=== PATIENT | female | born 1955 | race African-American/Black ===

== ENCOUNTER 2017-05-26 21:29 | Inpatient (IN) | payer BC ==
[~2017-05-26] VITALS: Ht 154.9 cm; Wt 61.2 kg
[2017-05-26] MEDS ORDERED: IV NORMAL SALINE 1000ML BAG 1,000 ML IV SCH (21:45)
--- NOTE | 2017-05-26 21:49 | PHYS DOC ---
Adult General Chief Complaint Chief Complaint: ABDOMINAL PAIN HPI HPI Patient is a 62 year old female who presents with complaint of nausea and vomiting this started suddenly 1 hour ago. 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 Patient states that the symptoms started while she was working. Patient denies feeling sick or having any fevers today prior to onset of symptoms. Patient denies any abdominal pain at this time. Patient was given Zofran by EMS which she states helped with her nausea, however she is currently feeling chills. Denies any diarrhea or bloody stools. Patient denies any significant past medical history. Patient has had a hysterectomy several years ago but denies any recent surgeries. Patient not currently on any medications and does not follow the primary doctor currently. Review of Systems Review of Systems Constitutional: Chills, denies fever[] Eyes: Denies change in visual acuity, redness, or eye pain [] HENT: Denies nasal congestion or sore throat [] Respiratory: Denies cough or shortness of breath [] Cardiovascular: Denies chest pain or edema[] GI: Nausea, vomiting, denies abdominal pain, bloody stools or diarrhea [] : Denies dysuria or hematuria [] Musculoskeletal: Denies back pain or joint pain [] Integument: Denies rash or skin lesions [] Neurologic: Denies headache, focal weakness or sensory changes [] Current Medications Current Medications Current Medications Medications (Trade) Dose Ordered Sig/Sarwat Start Time Stop Time Status Last Admin Dose Admin Famotidine (Pepcid) 20 mg 1X ONCE 05/26/17 22:00 05/26/17 22:01 DC 05/26/17 22:08 20 MG Info (Do NOT chart on this entry -- for MONITORING) 1 each PRN DAILY PRN 05/26/17 23:15 05/28/17 23:14 Iohexol (Omnipaque 300 Mg/ml) 75 ml 1X ONCE 05/26/17 23:15 05/26/17 23:16 DC 05/26/17 00:20 75 ML Prochlorperazine Edisylate (Compazine) 10 mg 1X ONCE 05/26/17 22:00 05/26/17 22:01 DC 05/26/17 22:08 10 MG Sodium Chloride 1,000 ml @ 1,000 mls/hr Q1H 05/26/17 21:45 05/26/17 22:44 DC 05/26/17 22:07 1,000 MLS/HR Allergies Allergies Allergies Coded Allergies Type Severity Reaction Last Updated Verified Penicillins Allergy Unknown "SHAKING" 05/26/17 Yes Physical Exam Physical Exam Constitutional: Alert, afebrile, rigors, appears ill. [] HENT: Normocephalic, atraumatic, bilateral external ears normal, oropharynx moist, no oral exudates, nose normal. [] Eyes: PERRLA, EOMI, conjunctiva normal, no discharge. [] Neck: Normal range of motion, no tenderness, supple, no stridor. [] Cardiovascular:Heart rate regular rhythm, no murmur [] Lungs & Thorax: Bilateral breath sounds clear to auscultation [] Abdomen: Bowel sounds normal, soft, no tenderness, no masses, no pulsatile masses. [] Skin: Warm, dry, no erythema, no rash. [] Back: No tenderness, no CVA tenderness. [] Extremities: No tenderness, no cyanosis, no clubbing, ROM intact, no edema. [] Neurologic: Alert and oriented X 3, normal motor function, normal sensory function, no focal deficits noted. [] Current Patient Data Vital Signs Vital Signs Date Time Temp Pulse Resp B/P (MAP) Pulse Ox O2 Delivery O2 Flow Rate FiO2 05/27/17 00:04 72 11 106/65 (79) 97 Room Air 05/26/17 21:42 98.4 98.4 Lab Values Laboratory Tests Test 05/26/17 22:14 05/26/17 23:20 Urine Collection Type Unknown Urine Color Yellow Urine Clarity Clear Urine pH 6.0 Urine Specific [place] 1.010 Urine Protein Negative mg/dL (NEG-TRACE) Urine Glucose (UA) Negative mg/dL (NEG) Urine Ketones (Stick) Negative mg/dL (NEG) Urine Blood Negative (NEG) Urine Nitrite Negative (NEG) Urine Bilirubin Negative (NEG) Urine Urobilinogen Dipstick 0.2 mg/dL (0.2 mg/dL) Urine Leukocyte Esterase Negative (NEG) Urine RBC Occ /HPF (0-2) Urine WBC 0 /HPF (0-4) Urine Squamous Epithelial Cells None /LPF Urine Bacteria 0 /HPF (0-FEW) Urine Mucus Slight /LPF White Blood Count 10.8 x10^3/uL (4.0-11.0) Red Blood Count 4.46 x10^6/uL (3.50-5.40) Hemoglobin 13.0 g/dL (12.0-15.5) Hematocrit 39.0 % (36.0-47.0) Mean Corpuscular Volume 88 fL (79-100) Mean Corpuscular Hemoglobin 29 pg (25-35) Mean Corpuscular Hemoglobin Concent 33 g/dL (31-37) Red Cell Distribution Width 13.9 % (11.5-14.5) Platelet Count 148 x10^3/uL (140-400) Neutrophils (%) (Auto) 88 % (31-73) H Lymphocytes (%) (Auto) 5 % (24-48) L Monocytes (%) (Auto) 6 % (0-9) Eosinophils (%) (Auto) 0 % (0-3) Basophils (%) (Auto) 0 % (0-3) Neutrophils # (Auto) 9.6 x10^3uL (1.8-7.7) H Lymphocytes # (Auto) 0.6 x10^3/uL (1.0-4.8) L Monocytes # (Auto) 0.6 x10^3/uL (0.0-1.1) Eosinophils # (Auto) 0.0 x10^3/uL (0.0-0.7) Basophils # (Auto) 0.0 x10^3/uL (0.0-0.2) Platelet Estimate Pending Sodium Level 143 mmol/L (136-145) Potassium Level 3.3 mmol/L (3.5-5.1) L Chloride Level 107 mmol/L (98-107) Carbon Dioxide Level 24 mmol/L (21-32) Anion Gap 12 (6-14) Blood Urea Nitrogen 12 mg/dL (7-20) Creatinine 0.9 mg/dL (0.6-1.0) Estimated GFR (Cockcroft-Gault) 77.0 BUN/Creatinine Ratio 13 (6-20) Glucose Level 134 mg/dL (70-99) H Calcium Level 9.0 mg/dL (8.5-10.1) Total Bilirubin 0.5 mg/dL (0.2-1.0) Aspartate Amino Transferase (AST) 21 U/L (15-37) Alanine Aminotransferase (ALT) 19 U/L (14-59) Alkaline Phosphatase 43 U/L (46-116) L Total Protein 7.2 g/dL (6.4-8.2) Albumin 3.6 g/dL (3.4-5.0) Albumin/Globulin Ratio 1.0 (1.0-1.7) Lipase 96 U/L (73-393) Laboratory Tests 05/26/17 23:20 Laboratory Tests 05/26/17 23:20 EKG EKG Interpreted by me: Heart rate 68, sinus rhythm, normal intervals, left axis deviation, no acute ST/T-wave abnormalities present[] Radiology/Procedures Radiology/Procedures 3 view acute abdominal series interpreted by me: No pulmonary infiltrates or effusions, normal cardiac silhouette, dilated loops of small bowel suggesting obstructive bowel gas pattern [facility] [address] [place] [address] IMAGING REPORT Signed PATIENT: MASOOD HERNANDEZ ACCOUNT: [id number] : 1955 LOCATION: ER AGE: 62 SEX: F EXAM STATUS: REG ER ORD. PHYSICIAN: SUPRIYA MANNING MD REASON: nausea vomiting, abnormal abdominal x-ray, possible obstruction PROCEDURE: CT ABD PELV W/ IV CONTRST ONLY INDICATION: abd pain, nausea, vomiting; Omni 300, 75ml COMPARISON: None. TECHNIQUE: Axial CT images were obtained through the abdomen and pelvis with intravenous contrast. One or more of the following individualized dose reduction techniques were utilized for this examination: 1. Automated exposure control; 2. Adjustment of the mA and/or kV according to patient size; 3. Use of iterative reconstruction technique. FINDINGS: Mild calcific atherosclerosis without abdominal aortic aneurysm. Apparent postoperative changes at right common femoral region. Postcholecystectomy changes. Numerous low-attenuation lesions within the liver measuring up to about 12 mm. No peripancreatic edema. Calcified granulomas of spleen. Suspected fat-containing lesion right kidney, 7 mm. Cystic lesion left kidney, 26 mm. No hydronephrosis. Bladder is distended with urine at time of exam. Large amount of stool seen within the rectosigmoid region. Dilated loops of small bowel are seen within the abdomen measuring up to about 59 mm. Degenerative changes spine IMPRESSION: 1. Dilated loops of small bowel are seen throughout the abdomen with decompression of the colon. Can be seen with causes such as small bowel obstruction in the correct clinical context. 2. Large amount of stool is seen within the rectosigmoid region. Could be from constipation but causes such as fecal impaction not excluded. 3. Small fat-containing lesion right kidney. Can be seen with angiomyolipoma. 4. Multiple low-attenuation lesions of the liver. Many of these are too small to characterize on this examination. If the patient has history or risk factors for malignancy nonemergent follow-up liver MRI could BE obtained 5. Mild scattered sclerotic foci with one of the most prominent foci within the left pelvis measuring approximately 1 cm. Most common cause would be bone island unless the patient has a known history of malignancy 6. Within the mid to lower lumbar spine at the anterior aspect of the central canal there is apparent region of high attenuation measuring up to about 4 mm in thickness. Could be related to degenerative changes with some disc protrusions within the region but would correlate with symptoms in the area and a follow-up MRI could be helpful to further evaluate to ensure that there is not an alternative cause such as a small amount of blood within the region.. Electronically signed by: Mily Benjamin MD (05/27/2017 12:46 AM) [facility] DICTATED and SIGNED BY: MILY BENJAMIN MD DATE: 05/27/17 0029 CC: SUPRIYA MANNING MD; SUNITA BAKER MD ~ [] Course & Med Decision Making Course & Med Decision Making Pertinent Labs and Imaging studies reviewed. (See chart for details) The patient's abdominal x-rays showed a gas pattern concerning for small bowel obstruction. The patient's CT scan further suggest small bowel obstruction though no obvious transition point is present. This could suggest partial small bowel obstruction versus ileus. Causes for patient's obstruction are not definite though possible malignancy could be part of the differential given the abnormal appearance to the liver is noted in the CT report. The patient was given IV fluids and Compazine in the emergency department. Patient states her symptoms have improved, however patient continues to feel nauseous and is not tolerating by mouth intake at this time. The patient will be admitted for further treatment and evaluation. Patient admitted to Dr. Jensen. Carley Disclaimer Carley Disclaimer This electronic medical record was generated, in whole or in part, using a voice recognition dictation system. Departure Departure Impression: Primary Impression: Small bowel obstruction Additional Impression: Nausea and vomiting Disposition: ADMITTED INPATIENT Admitting Physician: Davi Jensen Condition: STABLE Problem Qualifiers Additional Impression: Nausea and vomiting Vomiting type: unspecified Vomiting Intractability: intractable Qualified Codes: R11.2 - Nausea with vomiting, unspecified SUPRIYA MANNING MD May 26, 2017 21:49
[2017-05-26] MEDS ORDERED: FAMOTIDINE 20 MG/2 ML VIAL IVP ONE (22:00)
[2017-05-26] MEDS ORDERED: PROCHLORPERAZINE 10 MG/2 ML VIAL. IV ONE (22:00)
[2017-05-26 22:26] LABS: BILIRUBIN,URINE NEGATIVE (NEG); GLUCOSE,URINE NEGATIVE (NEG); NITRITE,URINE NEGATIVE (NEG); PROTEIN,URINE NEGATIVE (NEG-TRACE); UROBILINOGEN,URINE 0.2 mg/dL (0.2 mg/dL)
[2017-05-26 23:05] LABS: BACTERIA,URINE 0 /HPF (0-FEW); RBC,URINE OCC /HPF (0-2); WBC,URINE 0 /HPF (0-4)
[2017-05-26] MEDS ORDERED: IOHEXOL 300 MG/ML 75 ML VIAL IV ONE (23:15)
[2017-05-26] MEDS ORDERED: CONTRAST GIVEN MC PRN (23:15)
[2017-05-26 23:33] LABS: BASO % 0 % (0-3); EOS % 0 % (0-3); LYMPH # 0.6 x10^3/uL (1.0-4.8); LYMPH % 5 % (24-48); MEAN CORPUSCULAR HEMOGLOBIN 29 pg (25-35); MEAN CORPUSCULAR HGB CONC 33 g/dL (31-37); MEAN CORPUSCULAR VOLUME 88 fL (79-100); MONO % 6 % (0-9); NEUT % 88 % (31-73); PLATELET COUNT 148 x10^3/uL (140-400); RED BLOOD COUNT 4.46 x10^6/uL (3.50-5.40); RED CELL DISTRIBUTION WIDTH 13.9 % (11.5-14.5); WHITE BLOOD COUNT 10.8 x10^3/uL (4.0-11.0)
[2017-05-26 23:41] LABS: CREATININE 0.9 mg/dL (0.6-1.0); POTASSIUM 3.3 mmol/L (3.5-5.1)
[2017-05-26 23:49] LABS: ALBUMIN 3.6 g/dL (3.4-5.0); TOTAL BILIRUBIN 0.5 mg/dL (0.2-1.0); TOTAL PROTEIN 7.2 g/dL (6.4-8.2)
--- NOTE | 2017-05-27 00:49 | RAD ---
INDICATION: abd pain, nausea, vomiting; Omni 300, 75ml COMPARISON: None. TECHNIQUE: Axial CT images were obtained through the abdomen and pelvis with intravenous contrast. One or more of the following individualized dose reduction techniques were utilized for this examination: 1. Automated exposure control; 2. Adjustment of the mA and/or kV according to patient size; 3. Use of iterative reconstruction technique. FINDINGS: Mild calcific atherosclerosis without abdominal aortic aneurysm. Apparent postoperative changes at right common femoral region. Postcholecystectomy changes. Numerous low-attenuation lesions within the liver measuring up to about 12 mm. No peripancreatic edema. Calcified granulomas of spleen. Suspected fat-containing lesion right kidney, 7 mm. Cystic lesion left kidney, 26 mm. No hydronephrosis. Bladder is distended with urine at time of exam. Large amount of stool seen within the rectosigmoid region. Dilated loops of small bowel are seen within the abdomen measuring up to about 59 mm. Degenerative changes spine IMPRESSION: 1. Dilated loops of small bowel are seen throughout the abdomen with decompression of the colon. Can be seen with causes such as small bowel obstruction in the correct clinical context. 2. Large amount of stool is seen within the rectosigmoid region. Could be from constipation but causes such as fecal impaction not excluded. 3. Small fat-containing lesion right kidney. Can be seen with angiomyolipoma. 4. Multiple low-attenuation lesions of the liver. Many of these are too small to characterize on this examination. If the patient has history or risk factors for malignancy nonemergent follow-up liver MRI could BE obtained 5. Mild scattered sclerotic foci with one of the most prominent foci within the left pelvis measuring approximately 1 cm. Most common cause would be bone island unless the patient has a known history of malignancy 6. Within the mid to lower lumbar spine at the anterior aspect of the central canal there is apparent region of high attenuation measuring up to about 4 mm in thickness. Could be related to degenerative changes with some disc protrusions within the region but would correlate with symptoms in the area and a follow-up MRI could be helpful to further evaluate to ensure that there is not an alternative cause such as a small amount of blood within the region.. Electronically signed by: Krzysztof Knight MD (05/27/2017 12:46 AM) [facility]
[2017-05-27] MEDS ORDERED: ONDANSETRON PF 4 MG/2 ML VIAL. IV PRN (01:15)
[2017-05-27] MEDS: IV DEXTROSE 5 %-0.45 % NACL 1,000 ML IV SCH ×3 (02:59→20:18)
[2017-05-27 03:22] LABS: % BASOS 2 % (0-3); PLT ESTIMATE ADEQUATE (ADEQUATE)
[2017-05-27] MEDS ORDERED: INFLUENZA VAX SCREEN BY RX. MC ONE (05:15)
[2017-05-27 07:30] VITALS: BP 125/71
[2017-05-27] MEDS ORDERED: FLU VACC QS2017-18 (36MOS+)/PF 0.5 ML SYRINGE. VAX IM ONE (09:00)
[2017-05-27 10:30] VITALS: BP 110/63
--- NOTE | 2017-05-27 10:55 | RAD ---
Acute abdomen series with chest, 3 views, 05/26/2017: History: Pain, nausea and vomiting There is moderate gaseous distention of multiple small bowel loops with associated air-fluid levels. There is a moderate amount of gas in the stomach. There is a small amount of gas in the colon. There are moderate scattered collections of stool in the colon. No free air seen in the abdomen. Surgical clips are present in the right upper quadrant and at the right groin. Mild scattered degenerative changes are evident in the spine. The heart size and pulmonary vascularity are normal. No pulmonary infiltrates are seen. There is no evidence of pleural fluid. IMPRESSION: Small bowel obstruction.
--- NOTE | 2017-05-27 12:26 | EKG ---
[facility] [address] [place] [address] Test Date: 2017-05-26 Test Time: 22:14:23 Pat Name: MASOOD HERNANDEZ Department: Room: [facility] Gender: F Swimming Pool Serviceperson: : 1955 Requested By: SUPRIYA MANNING Order Number: [id number] Reading MD: Darnell Gutierrez Measurements Intervals Mcmillan Rate: 68 P: 50 FL: 126 QRS: -45 QRSD: 108 T: 42 QT: 402 QTc: 428 Interpretive Statements SINUS RHYTHM ABNORMAL LEFT AXIS DEVIATION LEFT ANTERIOR FASCICULAR BLOCK LEFT VENTRICULAR HYPERTROPHY ABNORMAL ECG RI6.01 No previous ECG available for comparison Electronically Signed On 06-14-2017 17:14:51 CDT by Darnell Gutierrez
[2017-05-27 15:00] VITALS: BP 132/80
--- NOTE | 2017-05-27 17:59 | HP ---
ADMIT DATE: 05/27/2017 CHIEF COMPLAINT: Abdominal pain. HISTORY OF PRESENT ILLNESS: This is a 62-year-old -[place] woman without significant past medical history who presented from work with severe nausea, vomiting and dizziness. She relates that she actually was on her way home from work where she had been ill feeling. She had all of a sudden started vomiting. On her way home, she actually got worse and worse and did not even make it all the way to her house. Her neighbor called EMS for her, and she was taken to the Emergency Room. She relates that she had not been eating any unusual foods, has no sick contact. Denies any fevers, chills, any other symptoms. Symptoms, however, got better when she received Zofran in EMS. At current examination, she is feeling fairly stable and is no longer nauseous. PAST MEDICAL HISTORY: Hypertension. FAMILY HISTORY: Positive for diabetes and hypertension. SOCIAL HISTORY: Lives by herself, never smoked. No toxic habits. ALLERGIES: PENICILLINS. MEDICATIONS: MAR reconciled with home medications. REVIEW OF SYSTEMS: Positive as per HPI. Rest of organ system review is negative. PHYSICAL EXAMINATION: VITAL SIGNS: From today show a blood pressure of 110/63, respiratory rate at 18, heart rate at 70. She is afebrile. GENERAL: This is a well-nourished, well-developed 62-year-old -[place] woman, alert and oriented, in no acute distress. HEENT: Shows no scleral icterus. NECK: Supple, without any lymphadenopathy. LUNGS: Clear. HEART: Regular rate and rhythm. ABDOMEN: Positive bowel sounds and minimal tenderness to palpation in upper quadrants, diffuse. EXTREMITIES: Show no edema. SKIN: Warm, soft and dry without any rash. LABORATORY DATA: CBC with a WBC of 10.8, hemoglobin 13.0, platelets of 148. Chemistries with a BUN and creatinine of 12 and 0.9, potassium at 3.3. Rest of electrolytes within normal. LFTs are normal. Urine shows no signs of infection. IMAGING STUDIES: CT of the abdomen and pelvis shows dilated loops of small bowel throughout the abdomen with decompression of the colon, large amount of stool within the rectosigmoid region. ASSESSMENT AND PLAN: The patient is a 62-year-old woman with sudden onset nausea, vomiting and abdominal pain. Etiology is unclear, but viral syndrome was suspected. Her symptoms now have abated. We will start clear liquid trial. She does have some signs that are consistent with small-bowel obstruction. She, however, had normal bowel movements up until her episode earlier this morning. We will monitor closely. She is on Reglan to help with her symptoms and bowel motility. ALBERT RIVERA MD DR: UR/nts JOB#: [id number] / [id number] BHARATI
[2017-05-27 19:00] VITALS: BP 145/72
--- NOTE | 2017-05-27 19:12 | PDOC2 ---
CONSULT Date of Consult Date of Consult DATE: 05/27/17 TIME: 19:07 Reason for Consult Reason for Consult: abd pain Referring Physician Referring Physician: Camila Identification/Chief Complaint Chief Complaint abd pain Problems: Source Source: Patient History of Present Illness Reason for Visit: 62 yo F with c/o diffuse abd pain, mild nausea. Pt with research management associate issues with constipation. Pt reports unable to have stool without laxatives. Past Medical History GI: Constipation Past Surgical History Past Surgical History: Cholecystectomy, Hysterectomy Family History Family History: No Significant Social History No ALCOHOL: rare Current Problem List Problem List Problems Medical Problems: (1) Nausea and vomiting Status: Acute (2) Small bowel obstruction Status: Acute Current Medications Current Medications Current Medications Sodium Chloride 1,000 ml @ 1,000 mls/hr Q1H IV Last administered on 05/26/17 22:07; Start 05/26/17 at 21:45; Stop 05/26/17 at 22:44; Status DC Prochlorperazine Edisylate (Compazine) 10 mg 1X ONCE IV Last administered on 05/26/17 22:08; Start 05/26/17 at 22:00; Stop 05/26/17 at 22:01; Status DC Famotidine (Pepcid) 20 mg 1X ONCE IVP Last administered on 05/26/17 22:08; Start 05/26/17 at 22:00; Stop 05/26/17 at 22:01; Status DC Iohexol (Omnipaque 300 Mg/ml) 75 ml 1X ONCE IV Last administered on 05/26/17 00:20; Start 05/26/17 at 23:15; Stop 05/26/17 at 23:16; Status DC Info (Do NOT chart on this entry -- for MONITORING) 1 each PRN DAILY PRN MC SEE COMMENTS; Start 05/26/17 at 23:15; Stop 05/28/17 at 23:14 Ondansetron HCl (Zofran) 4 mg PRN Q8HRS PRN IV NAUSEA/VOMITING; Start 05/27/17 at 01:15; Stop 05/28/17 at 01:14 Dextrose/Sodium Chloride 1,000 ml @ 125 mls/hr Q8H IV Last administered on 10:00; Start 05/27/17 at 01:15 Info (Do NOT chart on this placeholder) 0.5 each 1X ONCE MC ; Start 05/27/17 at 05:15; Stop 05/27/17 at 05:16; Status UNV Influenza Virus Vaccine Quadrival (Fluarix Quad [id number] Syringe) 0.5 ml ONCE ONCE VAX IM Last administered on 05/27/17t 15:58; Start 05/27/17 at 09:00; Stop 05/27/17 at 09:01; Status DC Active Scripts Active Reported No Known Medications Prior To Admisstion (Info) Each 1 Each Allergies Allergies: Coded Allergies: Penicillins (Verified Allergy, Unknown, "SHAKING" , 05/26/17) ROS Gastrointestinal: Yes Abdominal Pain, Yes Constipation Physical Exam General: Alert, Oriented X3, Cooperative, No acute distress HEENT: Atraumatic, EOMI Lungs: Normal air movement Abdomen: No masses, Other (mild diffuse TTP and distention) Extremities: No clubbing, No edema Skin: No rashes, No breakdown Neuro: Normal speech, Sensation intact Psych/Mental Status: Mental status NL, Mood NL Vitals VITALS Vital Signs Date Time Temp Pulse Resp B/P (MAP) Pulse Ox O2 Delivery O2 Flow Rate FiO2 05/27/17 15:00 98.7 66 16 132/80 (97) 99 Room Air 98.7 Labs Labs Laboratory Tests Test 05/26/17 22:14 05/26/17 23:20 Urine Collection Type Unknown Urine Color Yellow Urine Clarity Clear Urine pH 6.0 Urine Specific [place] 1.010 Urine Protein Negative mg/dL (NEG-TRACE) Urine Glucose (UA) Negative mg/dL (NEG) Urine Ketones (Stick) Negative mg/dL (NEG) Urine Blood Negative (NEG) Urine Nitrite Negative (NEG) Urine Bilirubin Negative (NEG) Urine Urobilinogen Dipstick 0.2 mg/dL (0.2 mg/dL) Urine Leukocyte Esterase Negative (NEG) Urine RBC Occ /HPF (0-2) Urine WBC 0 /HPF (0-4) Urine Squamous Epithelial Cells None /LPF Urine Bacteria 0 /HPF (0-FEW) Urine Mucus Slight /LPF White Blood Count 10.8 x10^3/uL (4.0-11.0) Red Blood Count 4.46 x10^6/uL (3.50-5.40) Hemoglobin 13.0 g/dL (12.0-15.5) Hematocrit 39.0 % (36.0-47.0) Mean Corpuscular Volume 88 fL (79-100) Mean Corpuscular Hemoglobin 29 pg (25-35) Mean Corpuscular Hemoglobin Concent 33 g/dL (31-37) Red Cell Distribution Width 13.9 % (11.5-14.5) Platelet Count 148 x10^3/uL (140-400) Neutrophils (%) (Auto) 88 % (31-73) Lymphocytes (%) (Auto) 5 % (24-48) Monocytes (%) (Auto) 6 % (0-9) Eosinophils (%) (Auto) 0 % (0-3) Basophils (%) (Auto) 0 % (0-3) Neutrophils # (Auto) 9.6 x10^3uL (1.8-7.7) Lymphocytes # (Auto) 0.6 x10^3/uL (1.0-4.8) Monocytes # (Auto) 0.6 x10^3/uL (0.0-1.1) Eosinophils # (Auto) 0.0 x10^3/uL (0.0-0.7) Basophils # (Auto) 0.0 x10^3/uL (0.0-0.2) Segmented Neutrophils % 73 % (35-66) Band Neutrophils % 12 % (0-9) Lymphocytes % 10 % (24-48) Monocytes % 3 % (0-10) Basophils % 2 % (0-3) Platelet Estimate Adequate (ADEQUATE) Sodium Level 143 mmol/L (136-145) Potassium Level 3.3 mmol/L (3.5-5.1) Chloride Level 107 mmol/L (98-107) Carbon Dioxide Level 24 mmol/L (21-32) Anion Gap 12 (6-14) Blood Urea Nitrogen 12 mg/dL (7-20) Creatinine 0.9 mg/dL (0.6-1.0) Estimated GFR (Cockcroft-Gault) 77.0 BUN/Creatinine Ratio 13 (6-20) Glucose Level 134 mg/dL (70-99) Calcium Level 9.0 mg/dL (8.5-10.1) Total Bilirubin 0.5 mg/dL (0.2-1.0) Aspartate Amino Transf (AST/SGOT) 21 U/L (15-37) Alanine Aminotransferase (ALT/SGPT) 19 U/L (14-59) Alkaline Phosphatase 43 U/L (46-116) Total Protein 7.2 g/dL (6.4-8.2) Albumin 3.6 g/dL (3.4-5.0) Albumin/Globulin Ratio 1.0 (1.0-1.7) Lipase 96 U/L (73-393) Laboratory Tests Test 05/26/17 22:14 05/26/17 23:20 Urine Collection Type Unknown Urine Color Yellow Urine Clarity Clear Urine pH 6.0 Urine Specific [place] 1.010 Urine Protein Negative mg/dL (NEG-TRACE) Urine Glucose (UA) Negative mg/dL (NEG) Urine Ketones (Stick) Negative mg/dL (NEG) Urine Blood Negative (NEG) Urine Nitrite Negative (NEG) Urine Bilirubin Negative (NEG) Urine Urobilinogen Dipstick 0.2 mg/dL (0.2 mg/dL) Urine Leukocyte Esterase Negative (NEG) Urine RBC Occ /HPF (0-2) Urine WBC 0 /HPF (0-4) Urine Squamous Epithelial Cells None /LPF Urine Bacteria 0 /HPF (0-FEW) Urine Mucus Slight /LPF White Blood Count 10.8 x10^3/uL (4.0-11.0) Red Blood Count 4.46 x10^6/uL (3.50-5.40) Hemoglobin 13.0 g/dL (12.0-15.5) Hematocrit 39.0 % (36.0-47.0) Mean Corpuscular Volume 88 fL (79-100) Mean Corpuscular Hemoglobin 29 pg (25-35) Mean Corpuscular Hemoglobin Concent 33 g/dL (31-37) Red Cell Distribution Width 13.9 % (11.5-14.5) Platelet Count 148 x10^3/uL (140-400) Neutrophils (%) (Auto) 88 % (31-73) Lymphocytes (%) (Auto) 5 % (24-48) Monocytes (%) (Auto) 6 % (0-9) Eosinophils (%) (Auto) 0 % (0-3) Basophils (%) (Auto) 0 % (0-3) Neutrophils # (Auto) 9.6 x10^3uL (1.8-7.7) Lymphocytes # (Auto) 0.6 x10^3/uL (1.0-4.8) Monocytes # (Auto) 0.6 x10^3/uL (0.0-1.1) Eosinophils # (Auto) 0.0 x10^3/uL (0.0-0.7) Basophils # (Auto) 0.0 x10^3/uL (0.0-0.2) Segmented Neutrophils % 73 % (35-66) Band Neutrophils % 12 % (0-9) Lymphocytes % 10 % (24-48) Monocytes % 3 % (0-10) Basophils % 2 % (0-3) Platelet Estimate Adequate (ADEQUATE) Sodium Level 143 mmol/L (136-145) Potassium Level 3.3 mmol/L (3.5-5.1) Chloride Level 107 mmol/L (98-107) Carbon Dioxide Level 24 mmol/L (21-32) Anion Gap 12 (6-14) Blood Urea Nitrogen 12 mg/dL (7-20) Creatinine 0.9 mg/dL (0.6-1.0) Estimated GFR (Cockcroft-Gault) 77.0 BUN/Creatinine Ratio 13 (6-20) Glucose Level 134 mg/dL (70-99) Calcium Level 9.0 mg/dL (8.5-10.1) Total Bilirubin 0.5 mg/dL (0.2-1.0) Aspartate Amino Transf (AST/SGOT) 21 U/L (15-37) Alanine Aminotransferase (ALT/SGPT) 19 U/L (14-59) Alkaline Phosphatase 43 U/L (46-116) Total Protein 7.2 g/dL (6.4-8.2) Albumin 3.6 g/dL (3.4-5.0) Albumin/Globulin Ratio 1.0 (1.0-1.7) Lipase 96 U/L (73-393) Images Images Imaging c/w constipation and SBO Assessment/Plan Assessment/Plan constipation with resultant SBO will start enema and consider other laxatives. has had colonoscopy previously, but it has been a number of years Will ask GI to evaluate Thanks for consult! SUE HOWARD MD May 27, 2017 19:12
[2017-05-27] MEDS ORDERED: SODIUM PHOSPHATES 19/7GM 133 ML ENEMA. PR PRN (19:15)
[2017-05-27 23:00] VITALS: BP 112/59
[2017-05-28 03:00] VITALS: BP 106/51
[2017-05-28] MEDS: IV DEXTROSE 5 %-0.45 % NACL 1,000 ML IV SCH ×2 (03:08→09:15)
[2017-05-28 07:00] VITALS: BP 107/70
--- NOTE | 2017-05-28 09:58 | PDOC2 ---
GI CONSULT Reason For Consult: Constipation HPI: HPI: 62 y/o female who felt weak after work on 05/26, "almost fainted." Had associated diffuse abdominal pain and mild nausea. Had not eaten much that day while working. H/o constipation - usually 1 stool weekly after taking laxative pills once weekly. She does not want to treat constipation more aggressively due to fear of needing to use the restroom while working. Denies vomiting, change in appetite, reflux/heartburn, dysphagia, diarrhea, hematochezia, melena. Perhaps has lost a few pounds here and there, feels bloated semi- frequently. No previous EGD. Colonoscopy (says here) a couple years ago, believes normal. No liver, gallbladder, or pancreas history. Acute abd series showed SBO. CT A/P showed dilated loops of small bowel and large amount of stool in rectosigmoid region. Chart indicates she received an enema, she's not sure but states she has had a bowel movement since admission and is passing gas. This morning denies abd pain and n/v. Tolerated cream of wheat for breakfast. Would like to go home today. PMH: PMH: laparoscopic hysterectomy FH: Family History: No pertinent hx (denies GI cancers), Hypertension Social History: Smoke: No ALCOHOL: occassional ROS: GEN: Denies fevers, chills, sweats HEENT: Denies blurred vision, sore throat CV: Denies chest pain RESP: Denies shortness of air, cough GI: Per HPI : Denies hematuria, dysuria ENDO: perhaps a few pounds lost NEURO: Denies confusion, dizziness MSK: weakness SKIN: Denies jaundice, pruritus Vitals: Vitals: Vital Signs Date Time Temp Pulse Resp B/P (MAP) Pulse Ox O2 Delivery O2 Flow Rate FiO2 05/28/17 08:00 Room Air 05/28/17 07:00 98.3 56 18 107/70 (82 97 98.3 Allergies: Coded Allergies: Penicillins (Verified Allergy, Unknown, "SHAKING" , 05/26/17) Medications: Current Medications Medications (Trade) Dose Ordered Sig/[place] Route PRN Reason Start Time Stop Time Status Last Admin Dose Admin Sodium Monofluorophosphate (Fleet Adult) 133 ml PRN DAILY PRN [place] CONSTIPATION 05/27/17 19:15 05/27/17 20:18 Imaging: Imaging: Acute abd series IMPRESSION: Small bowel obstruction. CT A/P IMPRESSION: 1. Dilated loops of small bowel are seen throughout the abdomen with decompression of the colon. Can be seen with causes such as small bowel obstruction in the correct clinical context. 2. Large amount of stool is seen within the rectosigmoid region. Could be from constipation but causes such as fecal impaction not excluded. 3. Small fat-containing lesion right kidney. Can be seen with angiomyolipoma. 4. Multiple low-attenuation lesions of the liver. Many of these are too small to characterize on this examination. If the patient has history or risk factors for malignancy nonemergent follow-up liver MRI could BE obtained. 5. Mild scattered sclerotic foci with one of the most prominent foci within the left pelvis measuring approximately 1 cm. Most common cause would be bone island unless the patient has a known history of malignancy 6. Within the mid to lower lumbar spine at the anterior aspect of the central canal there is apparent region of high attenuation measuring up to about 4 mm in thickness. Could be related to degenerative changes with some disc protrusions within the region but would correlate with symptoms in the area and a follow-up MRI could be helpful to further evaluate to ensure that there is not an alternative cause such as a small amount of blood within the region. PE: GEN: NAD HEENT: Atraumatic, PERRL LUNGS: CTAB HEART: RRR ABD: NABS, S/ND/NT EXTREMITY: No edema SKIN: No rashes, no jaundice NEURO/PSYCH: A & O 3 A/P: A/P: Weakness Abd pain, nausea, constipation - resolved CRC screen -says colonoscopy a couple years ago (?here) -- Improved. Passing stool and gas, tolerating PO w/o pain or n/v. ADAT, DC per primary. Would benefit from more regular treatment of constipation. Suggested Miralax QD , adjusting dose as needed. MAGDY BALDWIN May 28, 2017 09:58
[2017-05-28 11:00] VITALS: BP 126/78
[2017-05-28] MEDS ORDERED: POLYETHYLENE GLYCOL 3350 17 GM PACKET. PO SCH (11:30)
--- NOTE | 2017-05-28 11:41 | PDOC ---
CARLOS RAMIREZ [employer]ATT[employer]ER 05/28/17 1141: SURGICAL PROGRESS NOTE Subjective wants to go home denies pain, n/v, tolerated breakfast small stool, + flatus Vital Signs Vital Signs Date Time Temp Pulse Resp B/P (MAP) Pulse Ox O2 Delivery O2 Flow Rate FiO2 05/28/17 11:00 98.1 57 18 126/78 (94) 100 Room Air 98.1 General: Alert, Oriented X3, Cooperative, No acute distress Abdomen: Normal bowel sounds, Soft, No tenderness Labs Laboratory Tests Test 05/26/17 22:14 05/26/17 23:20 Urine Collection Type Unknown Urine Color Yellow Urine Clarity Clear Urine pH 6.0 Urine Specific [place] 1.010 Urine Protein Negative mg/dL (NEG-TRACE) Urine Glucose (UA) Negative mg/dL (NEG) Urine Ketones (Stick) Negative mg/dL (NEG) Urine Blood Negative (NEG) Urine Nitrite Negative (NEG) Urine Bilirubin Negative (NEG) Urine Urobilinogen Dipstick 0.2 mg/dL (0.2 mg/dL) Urine Leukocyte Esterase Negative (NEG) Urine RBC Occ /HPF (0-2) Urine WBC 0 /HPF (0-4) Urine Squamous Epithelial Cells None /LPF Urine Bacteria 0 /HPF (0-FEW) Urine Mucus Slight /LPF White Blood Count 10.8 x10^3/uL (4.0-11.0) Red Blood Count 4.46 x10^6/uL (3.50-5.40) Hemoglobin 13.0 g/dL (12.0-15.5) Hematocrit 39.0 % (36.0-47.0) Mean Corpuscular Volume 88 fL (79-100) Mean Corpuscular Hemoglobin 29 pg (25-35) Mean Corpuscular Hemoglobin Concent 33 g/dL (31-37) Red Cell Distribution Width 13.9 % (11.5-14.5) Platelet Count 148 x10^3/uL (140-400) Neutrophils (%) (Auto) 88 % (31-73) Lymphocytes (%) (Auto) 5 % (24-48) Monocytes (%) (Auto) 6 % (0-9) Eosinophils (%) (Auto) 0 % (0-3) Basophils (%) (Auto) 0 % (0-3) Neutrophils # (Auto) 9.6 x10^3uL (1.8-7.7) Lymphocytes # (Auto) 0.6 x10^3/uL (1.0-4.8) Monocytes # (Auto) 0.6 x10^3/uL (0.0-1.1) Eosinophils # (Auto) 0.0 x10^3/uL (0.0-0.7) Basophils # (Auto) 0.0 x10^3/uL (0.0-0.2) Segmented Neutrophils % 73 % (35-66) Band Neutrophils % 12 % (0-9) Lymphocytes % 10 % (24-48) Monocytes % 3 % (0-10) Basophils % 2 % (0-3) Platelet Estimate Adequate (ADEQUATE) Sodium Level 143 mmol/L (136-145) Potassium Level 3.3 mmol/L (3.5-5.1) Chloride Level 107 mmol/L (98-107) Carbon Dioxide Level 24 mmol/L (21-32) Anion Gap 12 (6-14) Blood Urea Nitrogen 12 mg/dL (7-20) Creatinine 0.9 mg/dL (0.6-1.0) Estimated GFR (Cockcroft-Gault) 77.0 BUN/Creatinine Ratio 13 (6-20) Glucose Level 134 mg/dL (70-99) Calcium Level 9.0 mg/dL (8.5-10.1) Total Bilirubin 0.5 mg/dL (0.2-1.0) Aspartate Amino Transf (AST/SGOT) 21 U/L (15-37) Alanine Aminotransferase (ALT/SGPT) 19 U/L (14-59) Alkaline Phosphatase 43 U/L (46-116) Total Protein 7.2 g/dL (6.4-8.2) Albumin 3.6 g/dL (3.4-5.0) Albumin/Globulin Ratio 1.0 (1.0-1.7) Lipase 96 U/L (73-393) Problem List Problems Medical Problems: (1) Nausea and vomiting Status: Acute (2) Small bowel obstruction Status: Acute Assessment/Plan constipation would rec continue bowel regimen to prevent constipation Problems: SUE HOWARD MD 05/28/17 1152: SURGICAL PROGRESS NOTE Assessment/Plan Pt seen and examined. Agree with Ms. Ramirez's note Pt feels much better with good stool output abd soft, NTTP OK to d/c home recommend F/u with GI and cont bowel regimen Problems: CARLOS RAMIREZ APRN May 28, 2017 11:41 SUE HOWARD MD May 28, 2017 11:52
--- NOTE | 2017-05-28 16:45 | DS ---
DATE OF DISCHARGE: 05/28/2017 CHIEF COMPLAINT: Abdominal pain. HOSPITAL COURSE: The patient is a 62-year-old woman without significant medical history who presented with sudden onset abdominal pain, nausea, and vomiting. On CT in the Emergency Room, suspicion for small-bowel obstruction was given. She was therefore admitted and placed on bowel rest. Her abdominal symptoms, however, recovered fairly quickly spontaneously. She was started on clear liquid diet without any difficulties and was deemed stable for discharge the following day. PHYSICAL EXAMINATION: VITAL SIGNS: Show a blood pressure of 126/78, heart rate of 57, respiratory rate at 18. She is afebrile. GENERAL: This is a 62-year-old well-nourished woman, alert and oriented, no acute distress. HEENT: Shows no scleral icterus. NECK: Supple. LUNGS: Clear. HEART: Regular rate and rhythm. ABDOMEN: Has positive bowel sounds, soft, nontender. EXTREMITIES: Show no edema. DISCHARGE DATE: 05/28/2017. DISCHARGE DIAGNOSIS: Viral syndrome. DISCHARGE DISPOSITION: To home. DISCHARGE CONDITION: Improved. DISCHARGE MEDICATIONS: Please refer to MAR. DISCHARGE INSTRUCTIONS: The patient will follow up with PCP in 1-[address] weeks. ALBERT RIVERA [address]: UR/nts JOB#: [id number] / [id number] SUNITA Max MD MTDD
== END 2017-05-28 13:33 | disposition home or self-care (01) | DRG 866 ==
LOC: ER 21:29 → 5 SOUTH 05-27 00:59 → 5 NORTH 05-27 03:18 → 5 SOUTH 05-27 10:37
PROVIDERS: ADMIT Internal Medicine; ATTEND Internal Medicine
DX: B34.9 Viral infection, unspecified (principal); K56.7 Ileus, unspecified; I10 Essential (primary) hypertension; Z82.49 Family history of ischemic heart disease and other diseases of the circulatory system; Z83.3 Family history of diabetes mellitus; Z90.710 Acquired absence of both cervix and uterus; Z88.0 Allergy status to penicillin; Z90.49 Acquired absence of other specified parts of digestive tract; K59.00 Constipation, unspecified
CPT/HCPCS: 36415; 51701; 74022; 74177; 80053; 81001; 83690; 85007; 85025; 90686; 93005; 96361; 96374; 96375; J0780; J7030; Q9967; S0028; 99285-25